=== PATIENT | male | born 1960 | race African-American/Black ===

== ENCOUNTER 2017-09-16 20:26 | Emergency (ER) | payer MEDICAID ==
[~2017-09-16] VITALS: Ht 165.1 cm; Wt 66.0 kg
[2017-09-16] MEDS ORDERED: KETOROLAC 30MG/ML VIAL IV STA (22:03)
[2017-09-16] MEDS ORDERED: SODIUM CHLORIDE 0.9% 1,000 ML IV ONE (22:03)
[2017-09-16 23:19] LABS: CHLORIDE 111 mEq/L (98-107)
[2017-09-16 23:21] LABS: INR 1.1; PROTHROMBIN TIME 11.4 sec (9.4-11.6)
[2017-09-16 23:22] LABS: CARBON DIOXIDE 28 mEq/L (21-32)
[2017-09-16 23:29] LABS: BASOPHILS % 0.7 % (0.0-2.0); EOSINOPHILS % 2.4 % (0.0-5.0); HEMATOCRIT. 43.7 % (42.0-52.0); HEMOGLOBIN. 14.4 g/dL (14.0-18.0); LYMPHOCYTES % 11.3 % (20.0-50.0); MEAN CORPUSCULAR HEMOGLOBIN 29.6 pg (28.0-32.0); MEAN CORPUSCULAR VOLUME 89.6 fL (80.0-94.0); MEAN PLATELET VOLUME 7.6 fl (7.4-10.4); MONOCYTES % 3.9 % (2.0-8.0); NEUTROPHILS % 81.7 % (40.0-76.0); PLATELET 260 x1000/uL (130-400); RED BLOOD CELL COUNT 4.87 mill/uL (4.7-6.1); RED CELL DISTRIBUTION WIDTH 15.4 % (11.6-14.6)
[2017-09-17 02:17] LABS: CLARITY URINE CLEAR (CLEAR); COLOR URINE YELLOW (YELLOW); GLUCOSE URINE NEGATIVE (NEGATIVE); KETONES URINE NEGATIVE (NEGATIVE); LEUKOCYTE ESTERASE URINE NEGATIVE (NEGATIVE); NITRITE URINE NEGATIVE (NEGATIVE); OCCULT BLOOD URINE NEGATIVE (NEGATIVE); PH URINE 6.5 (4.5-8.0); PROTEIN URINE NEGATIVE (NEGATIVE); SPECIFIC GRAVITY URINE 1.022 (1.005-1.030)
[2017-09-17 02:28] LABS: *AMPHETAMINES SCREEN URINE PRESUMTIVE POSITIVE (NEGATIVE); *BARBITURATES SCREEN URINE NEGATIVE (NEGATIVE); *BENZODIAZEPINES SCREEN URINE NEGATIVE (NEGATIVE); *COCAINE SCREEN URINE NEGATIVE (NEGATIVE); CANNABINOID URINE SCREEN PRESUMTIVE POSITIVE (NEGATIVE); METHADONE URINE SCREEN NEGATIVE (NEGATIVE); OPIATES URINE SCREEN NEGATIVE (NEGATIVE); PHENCYCLIDINE URINE SCREEN NEGATIVE (NEGATIVE)
[2017-09-17 06:31] VITALS: BP 106/72
== END 2017-09-17 06:32 | disposition home or self-care (01) ==
LOC: ER 20:26
DX: R10.84 Generalized abdominal pain (principal); R11.0 Nausea; F19.10 Other psychoactive substance abuse, uncomplicated; F17.200 Nicotine dependence, unspecified, uncomplicated; R56.9 Unspecified convulsions; Z88.8 Allergy status to other drugs, medicaments and biological substances
CPT/HCPCS: 36415; 80053; 80305; 81003; 83690; 85025; 85610; 96361; 96374; 99284; J1885; J7030; Z7610

== ENCOUNTER 2021-02-02 11:08 | Emergency (ER) | payer MEDICAID ==
[~2021-02-02] VITALS: Ht 172.7 cm; Wt 78.0 kg
[~2021-02-02 11:08] MED LIST: IBUP-2028 MT; QUET100T PO; TRAZ-251 PO
[2021-02-02] MEDS ORDERED: IBUPROFEN 600MG TABLET PO ONE (11:45)
[2021-02-02] MEDS ORDERED: MORPHINE SULFATE 10 MG/ML CPJ IM ONE (13:30)
[2021-02-02] MEDS ORDERED: IBUP-2029 PO (13:44)
[2021-02-02] MEDS ORDERED: HYDR-4346 MT (13:44)
[2021-02-02 15:50] VITALS: BP 140/89
== END 2021-02-02 15:52 | disposition home or self-care (01) ==
LOC: ER 11:23
DX: S83.094A Other dislocation of right patella, initial encounter (principal); X58.XXXA Exposure to other specified factors, initial encounter; Y93.89 Activity, other specified; Y92.89 Other specified places as the place of occurrence of the external cause; M17.11 Unilateral primary osteoarthritis, right knee; G40.909 Epilepsy, unspecified, not intractable, without status epilepticus; F20.9 Schizophrenia, unspecified
CPT/HCPCS: 27560; 73560; 73562; 96372; 99284; J2270; L1830